=== PATIENT | male | born 1985 | race Caucasian/White ===

== ENCOUNTER 2019-03-24 19:10 | Emergency (ER) | payer MEDICAID ==
[~2019-03-24] VITALS: Ht 162.6 cm; Wt 78.5 kg
[2019-03-24 19:18] VITALS: Ht 162.6 cm; Wt 78.5 kg
[2019-03-24 22:15] LABS: CALCIUM 9.6 mg/dL (8.5-10.1); CARBON DIOXIDE 27.7 mmol/L (21-32); CHLORIDE SERUM 103 mmol/L (98-107); GFR1 > 60 mL/min; GLUCOSE SERUM 112 mg/dL (74-106); POTASSIUM SERUM 3.5 mmol/L (3.5-5.1); SODIUM SERUM 143 mmol/L (136-145)
[2019-03-24 22:15] LABS: AMPHETAMINE QUAL UR NONE DETECTED (See below)
[2019-03-24 22:18] LABS: FREE T4 1.11 ng/dL (0.76-1.46); T4(THYROXINE) 8.2 ug/dL (4.7-13.3)
[2019-03-24 22:19] LABS: T3 TOTAL 1.22 ng/mL
[2019-03-24 22:21] LABS: ALBUMIN 4.3 g/dL (3.4-5.0); ALKALINE PHOSPHATASE 99 U/L (46-116); ALT/SGPT 81 U/L (16-63); AST/SGOT 21 U/L (15-37); BILIRUBIN TOTAL 0.5 mg/dL (0.20-1.00); TOTAL PROTEIN, SERUM 8.2 g/dL (6.4-8.2)
[2019-03-24 22:26] LABS: BASOPHIL % 0.2 % (0-2); PLATELET COUNT 279 x10^3mcL (130-400)
[2019-03-25 00:12] VITALS: BP 129/73
== END 2019-03-25 00:12 | disposition home or self-care (01) ==
LOC: ED 19:10
PROVIDERS: Emergency Medicine
DX: R51 Headache (principal); I49.9 Cardiac arrhythmia, unspecified
CPT/HCPCS: 36415; 84439; Q0092